=== PATIENT | male | born 1955 | race Caucasian/White ===

== ENCOUNTER 2021-10-23 09:05 | Day surgery (SDC) | payer MEDICARE, SELFPAY ==
[2021-10-18 12:47] VITALS: BMI 29.9
--- NOTE | 2021-10-22 10:47 | HO.ANESPROP2 ---
Documented by User: Simona Hidalgo NP 10/22/21 10:50 HPI - Anesthesia Eval Consult details Narrative: 66yo M for Upper Endoscopy and Colonoscopy [facility] Past Medical History Medical History Aortic ectasia Barretts esophagus BPH (benign prostatic hyperplasia) Diverticulitis Elevated cholesterol Gout Hx of colonic polyp Surgical History Surgical History History of ankle surgery Hx of colonoscopy Hx of tonsillectomy Social History Social History Are you a primary animal caregiver to a significant other at home: No Do you presently have visiting nurse or other home services: No Patient Tobacco Use Status: Former Tobacco user Have you been hit, kicked, punched, or otherwise hurt by someone within the past year? If so, by whom?: No Are you DNR?: No Advance Directives: No Advance Directives Information Provided: Yes Recently lost weight without trying: No Eating poorly because of decreased appetite: No Nutrition Risks: No Nutritional Risk Meds Allergies Allergy/AdvReac Type Severity Reaction Status Date / Time allopurinol Allergy Unknown Verified 10/17/21 16:12 Home Medications Medication Instructions Recorded Confirmed Last Taken Type multivitamin-ferrous 1 tab PO DAILY 10/17/21 10/17/21 Unknown History fumarate-folic acid 18 mg-400 mcg tablet (Centrum) Exam Exam Date and Time: October 22, 2021 1047 Height,Weight and Vital Signs: Height 5 ft 6 in Weight 84.368 kg Narrative Narrative: ECHO 2019 LV size is normal. LV wall thickness is mildly increased. LV sys function is normal. LVEF 60-65% Aortic root is normal in size. Proximal ascending aorta 36mm. Aortic arch. 32mm. RV is normal in size and function Tricuspid valve is normal in appearance with mild tricuspid regurg Assessment and Plan Assessment Anesthesia Assessment: Chart Reviewed Documented by User: Jazmín Ho MD 10/23/21 11:53 [facility] Past Medical History Medical History Aortic ectasia Barretts esophagus BPH (benign prostatic hyperplasia) Diverticulitis Elevated cholesterol Gout Hx of colonic polyp Family History Family history of problems with anesthesia: No Surgical History Surgical History History of ankle surgery Hx of colonoscopy Hx of tonsillectomy History of Problems with Anesthesia: No Social History Social History Are you a primary animal caregiver to a significant other at home: No Do you presently have visiting nurse or other home services: No Patient Tobacco Use Status: Former Tobacco user Have you been hit, kicked, punched, or otherwise hurt by someone within the past year? If so, by whom?: No Are you DNR?: No Advance Directives: No Advance Directives Information Provided: Yes Recently lost weight without trying: No Eating poorly because of decreased appetite: No Nutrition Risks: No Nutritional Risk Meds Allergies Allergy/AdvReac Type Severity Reaction Status Date / Time allopurinol Allergy Unknown Verified 10/17/21 16:12 Home Medications Medication Instructions Recorded Confirmed Last Taken Type multivitamin-ferrous 1 tab PO DAILY 10/17/21 10/17/21 Unknown History fumarate-folic acid 18 mg-400 mcg tablet (Centrum) Exam Height,Weight and Vital Signs: Height 5 ft 6 in Weight 84.368 kg Vital Signs Temp Pulse Resp BP Pulse Ox 98.6 F 70 16 146/86 H 98 10/23/21 09:55 10/23/21 09:55 10/23/21 09:55 10/23/21 09:55 10/23/21 09:55 Airway Mallampati Class: II TM Dist: >3cm Neck ROM: Full Denture: Upper Loose/Missing/Broken Teeth: Yes (Only 2 teeth bottom) Heart: RRR Lungs: CTAB Assessment and Plan Final Anesthetic Review Family History of Problems with Anesthesia: No History of Problems with Anesthesia: No NPO: Yes ASA Class: II Final Preanesthetic Review: No Changes in Pt Med Stat, Meds/Allgs Chart Reviewed, Consent Obtained/Reviewed and Anes Risks/Benef Reviewed Patient Risk: Low Procedure Risk: Low Assessment/Block/Sedation in SS: Assess/Block/Sedation-SS Anesthetic Plan Anesthetic Plan: MAC: Disposition: Standard PACU
[2021-10-23 09:55] VITALS: BP 146/86; PULSE 70; RESP 16; TEMP 37; O2SAT 98
[2021-10-23] MEDS: Lactated Ringers 1,000 ML 100 ML IVCONT (10:07)
--- NOTE | 2021-10-23 10:56 | MHC.SHP ---
Pre-Procedural Eval Section A Date of Service: 10/23/21 Section B Chief Complaint: Carpio's esophagus,screening Details of Present Illness: see H & P no changes Relevant Family History (Specify if Yes): No Relevant Social History: None Present Medications: see Short Stay Collaborative assessment Medical History: No relevant PMH History of Previous Operations: No relevant previous surgery Allergies: Allergies Allergy/AdvReac Type Severity Reaction Status Date / Time allopurinol Allergy Unknown Verified 10/17/21 16:12 Review of Systems Sugical H&P ROS: Negative: Constitution, Cardiovascular, Respiratory, Neurological, Psychiatric, Hem-Onc, Allergic/Immunologic, Gastrointestinal, Genitourinary, Musculoskeletal, Integumentary, Endocrine and Eyes/Ears/Nose/Throat Exam Surgical H&P Exam: Normal: HEENT, Normal: Heart, Normal: Lungs, Normal: Extremities, Normal: Abdomen, Normal: Skin and Normal: Neurological Plan Diagnosis/Plan: Unchanged I have reviewed the history and physical and performed a pertinent physical examination on my patient. No changes have occurred unless specified.
--- NOTE | 2021-10-23 11:40 | PM.OP ---
Brief Operative Note Date of Service: 10/23/21 Pre-op diagnosis: barretts,screening Procedure: egd, colonoscopy Surgeon: Agustin Granados Was an Fire Code Inspector used for this Procedure?: No Estimated blood loss (mL): 2 Pathology: other (see req) Condition: stable Disposition: PACU
[2021-10-23 11:47] VITALS: BP 118/69; PULSE 67; RESP 18; TEMP 36.2; O2SAT 96
[2021-10-23 12:02] VITALS: BP 126/75; PULSE 58; RESP 18; TEMP 36.4; O2SAT 98
[2021-10-23 12:17] VITALS: BP 134/81; PULSE 56; RESP 18; O2SAT 98
--- NOTE | 2021-10-23 22:02 | OP_ITS ---
SURGEON: Agustin Granados MD INDICATIONS: 1. Carpio esophagus. 2. Colon cancer screening. PREOPERATIVE DIAGNOSIS: POSTOPERATIVE DIAGNOSIS: PROCEDURE PERFORMED: ESTIMATED BLOOD LOSS: COMPLICATIONS: ANESTHESIA: ASSISTANTS: SPECIMENS: PROCEDURES: Upper endoscopy with biopsy, colonoscopy to the terminal ileum with snare polypectomy. MEDICATIONS: Monitored anesthesia care. DESCRIPTION OF PROCEDURE: History and physical performed. The risks and benefits of the procedure were explained to the patient. Informed consent was obtained. The patient was placed in the left lateral decubitus position. The Olympus video gastroscope was introduced into the esophagus, stomach, and duodenum. Examination was performed. The scope was removed. He was repositioned for colonoscopy. A digital rectal exam was performed and was found to be normal. The Olympus pediatric video colonoscope was introduced in the rectum and advanced to the cecum without difficulty. The cecum was identified by transillumination, palpation, and identification of the ileocecal valve. Examination was performed. The scope was removed. He tolerated both procedures well and was returned to recovery area in stable condition. FINDINGS: UPPER ENDOSCOPY: Esophagus: The esophagus showed an irregular EG junction with a less than 10 mm area of probable Carpio esophagus just at the EG junction. Biopsies were obtained. There were no raised lesions or ulcerated areas. Stomach: The stomach showed linear streaks of erythema in the bottom in the body rather. The antral biopsies were obtained to evaluate for H pylori. Duodenum: The bulb and second portion were normal. COLONOSCOPY: The terminal ileum was examined and appeared normal. The visualized colonic mucosa was within normal limits. There was some liquid stool coating the mucosa mainly in the cecum and right colon limiting the sensitivity examination for detection of small polyps. This was washed and suctioned as best possible. In the cecum, was a 10 mm to 12 mm sessile polyp, which was removed with a snare and recovered via suction. No other polyps were identified. Retroflexed examination showed small internal hemorrhoids. IMPRESSION: 1. Carpio esophagus. 2. Colon polyp. RECOMMENDATIONS: Follow up the biopsy results. MD CADEN Medina/MANSI / [id number]
== END 2021-10-23 12:53 | disposition home or self-care (01) ==
PROVIDERS: PCP Internal Medicine; Visit Provider Internal Medicine Gastroenterology
PROC: (CPT 45385; principal; 2021-10-23 10:20)
DX: Z12.11 Encounter for screening for malignant neoplasm of colon (principal); Z86.010 Personal history of colon polyps; D12.0 Benign neoplasm of cecum; K57.30 Diverticulosis of large intestine without perforation or abscess without bleeding; K64.8 Other hemorrhoids; K22.70 Barrett's esophagus without dysplasia; K21.9 Gastro-esophageal reflux disease without esophagitis; E78.00 Pure hypercholesterolemia, unspecified; I77.819 Aortic ectasia, unspecified site; N40.0 Benign prostatic hyperplasia without lower urinary tract symptoms; M10.9 Gout, unspecified; Z88.8 Allergy status to other drugs, medicaments and biological substances; Z87.891 Personal history of nicotine dependence
CPT/HCPCS: 45385; 43239; 88305; 88342